=== PATIENT | female | born 1955 | race Hispanic/Latino ===

== ENCOUNTER 2024-09-10 17:22 | Emergency (ER) | payer OTHER ==
[~2024-09-10] VITALS: Ht 160 cm; Wt 66.7 kg
[2024-09-10 18:05] LABS: CORONAVIRUS COVID-19 AG NEGATIVE (NEGATIVE); INFLUENZA A AG NEGATIVE (NEGATIVE); INFLUENZA B AG NEGATIVE (NEGATIVE)
[2024-09-10] MEDS ORDERED: AZITHROMYCIN250 MG PO (19:57)
[2024-09-10] MEDS ORDERED: ROBITUSSIN COU118 M4 PO (19:57)
[2024-09-10 20:01] VITALS: PULSE 76; RESP 16; TEMP 98.9; O2SAT 96
== END 2024-09-10 20:01 | disposition home or self-care (01) ==
LOC: ER 18:01
DX: R05.9 Cough, unspecified (principal); J06.9 Acute upper respiratory infection, unspecified; I10 Essential (primary) hypertension; Z11.52 Encounter for screening for COVID-19
CPT/HCPCS: 71045; 99283